=== PATIENT | female | born 1975 | race Caucasian/White ===

== ENCOUNTER 2019-03-21 07:10 | Outpatient (CLI) | payer BC ==
--- NOTE | 2019-03-21 08:16 | RAD ---
Radiograph right shoulder 3 views: DATE: 03/21/2019 HISTORY: 43-year-old female with acute on chronic shoulder pain FINDINGS: Minimal degenerative changes at AC joint. Normal appearance of glenohumeral joint with no subluxation or dislocation. No fracture. No rotator cuff calcifications. No destructive osseous lesion. IMPRESSION: Negative.
== END 2019-03-21 07:11 | disposition home or self-care (01) ==
LOC: SCSRAD 07:10
PROVIDERS: ATTEND Family Medicine
DX: M25.511 Pain in right shoulder (principal)

== ENCOUNTER 2024-03-13 13:59 | Outpatient (CLI) | payer BC | END 2024-03-13 14:00 | disposition home or self-care (01) | LOC: SCSRAD 13:59 | PROVIDERS: ATTEND Family Medicine | DX: M25.552 Pain in left hip (principal) ==